=== PATIENT | female | born 1960 | race Caucasian/White ===

== ENCOUNTER 2017-08-26 21:16 | Emergency (ER) | payer BC ==
[~2017-08-26] VITALS: Ht 154.9 cm; Wt 68.0 kg
--- NOTE | 2017-08-26 21:35 | NUR ---
PATIENT IS A WALK-IN TO ER BROUGHT INTO ROOM 2B VIA WHEELCHAIR C/O CHEST PRESSURE 8/10 RADIATING TO BACK X10HRS. PATIENT HYPERVENTALATING UPON ARRIVAL,ANXIOUS. EKG DONE AND PLACED ON MONITOR
[2017-08-26] MEDS ORDERED: ASPIRIN 325 MG TABLET ONE (21:39)
[2017-08-26] MEDS ORDERED: NITROGLYCERIN 0.4 MG/TAB BOTTLE SL ONE ×2 (21:40→21:45)
--- NOTE | 2017-08-26 21:40 | NUR ---
PATIENTLAYING ON GURNY C/O CHEST PRESSURE PAIN 8/10 RADIATING TO BACK. GAVE 1ST DOSE OF NITRO SUBLINGULA ORDERED
[2017-08-26 21:44] LABS: BASOPHILS % (AUTO) 0.3 % (0.0-2.0); EOSINOPHILS # (AUTO) 0.1 K/uL (0.0-0.7); EOSINOPHILS % (AUTO) 1.2 % (0.0-7.0); HEMATOCRIT 42.4 % (31.2-41.9); HEMOGLOBIN 14.9 g/dL (10.9-14.3); LYMPHOCYTES # (AUTO) 3.4 K/uL (20.0-40.0); LYMPHOCYTES % (AUTO) 40.1 % (20.5-51.5); MEAN CORPUSCULAR HEMOGLOBIN 29.9 uug (24.7-32.8); MEAN CORPUSCULAR HGB CONC 35 g/dL (32.3-35.6); MEAN CORPUSCULAR VOLUME 85.2 fL (75.5-95.3); MONOCYTES # (AUTO) 0.6 K/uL (2.0-10.0); MONOCYTES % (AUTO) 7.3 % (0.0-11.0); NEUTROPHILS # (AUTO) 4.4 K/uL (1.8-8.9); NEUTROPHILS % (AUTO) 51.1 % (38.5-71.5); PLATELET COUNT (AUTO) 285 K/uL (179-408); RED BLOOD CELL COUNT(AUTO) 4.97 MIL/uL (3.63-4.92); WHITE BLOOD COUNT (AUTO) 8.5 K/uL (3.8-11.8)
[2017-08-26] MEDS ORDERED: ASPIRIN 325 MG TABLET PO ONE (21:45)
[2017-08-26] MEDS ORDERED: IV NORMAL SALINE 500 ML BAG IV ONE (21:45)
--- NOTE | 2017-08-26 21:45 | NUR ---
AFTER 1ST DOSE OF NITRO PAIN IS DOWN TO 5/10 CHEST PRESSURE. GAVE 2ND DOSE OF NITRO AT 2145
[2017-08-26 21:50] LABS: CREATININE 0.9 mg/dL (0.6-1.3); POTASSIUM 3.6 mmol/L (3.5-5.1)
--- NOTE | 2017-08-26 21:50 | NUR ---
AFTER 2ND DOSE OF NITRO SUB LINGUA PAIN IS 5/10 ON CHEST AREA. GAVE 3RD DOSE OF NITRO SUB LINGUAL ORDERED
[2017-08-26 22:02] LABS: BILIRUBIN,DIRECT 0.1 mg/dL (0.0-0.2); BILIRUBIN,TOTAL 0.4 mg/dL (0.2-1.0); TOTAL PROTEIN, SERUM 8.4 g/dL (6.4-8.2)
--- NOTE | 2017-08-26 22:30 | NUR ---
PATIENT STATES FEELING BETTER. WOULD LIKE TO BE D/C'ED HOME
--- NOTE | 2017-08-26 22:40 | NUR ---
IV removed. Catheter intact and site benign. Pressure and 4x4 gauze applied to site. No bleeding noted.
[2017-08-26 22:41] VITALS: BP 119/75
--- NOTE | 2017-08-26 22:42 | NUR ---
Patient discharged to home in stable conditon WITH SISTER TAKING PATIENT. Written and verbal after care instructions given. Patient verbalizes understanding of instructions. PATIENT WALKED OUT OF ER WITH NO DISTRESS NOTED
== END 2017-08-26 22:43 | disposition home or self-care (01) ==
LOC: ER 21:18
DX: I10 Essential (primary) hypertension (principal); R07.89 Other chest pain
CPT/HCPCS: 36415; 71045; 80048; 80076; 83880; 84484; 85025; 85730; 93005; 99285; A4663; J7040; 70030-TC